=== PATIENT | female | born 1955 | race Caucasian/White ===

== ENCOUNTER 2016-08-06 07:46 | Emergency (ER) | payer MEDICAID ==
[~2016-08-06] VITALS: Ht 177.8 cm; Wt 110.0 kg
[2016-08-06] MEDS ORDERED: SYNTHROID (07:58)
[2016-08-06] MEDS ORDERED: FAMOTIDINE 20MG TABLET PO ONE (10:45)
[2016-08-06] MEDS ORDERED: KETOROLAC 60MG/2ML VIAL IM ONE (11:15)
[2016-08-06] MEDS ORDERED: IBUPROFEN 600MG TABLET PO ONE (11:45)
[2016-08-06 12:00] VITALS: BP 124/71
[2016-08-07] MEDS ORDERED: LORATADINE 10MG TABLET PO SCH (09:00)
== END 2016-08-06 12:43 | disposition home or self-care (01) ==
LOC: ER 10:23
DX: L23.81 Allergic contact dermatitis due to animal (cat) (dog) dander (principal); R03.0 Elevated blood-pressure reading, without diagnosis of hypertension
CPT/HCPCS: 99284

== ENCOUNTER 2018-11-12 16:24 | Emergency (ER) | payer MEDICAID ==
[~2018-11-12] VITALS: Ht 170.2 cm; Wt 114.0 kg
[~2018-11-12 16:24] MED LIST: SYNTHROID
[2018-11-12] MEDS ORDERED: KETOROLAC 30MG/ML VIAL IV STA (17:29)
[2018-11-12] MEDS ORDERED: SODIUM CHLORIDE 0.9% 1,000 ML IV ONE (17:29)
[2018-11-12] MEDS ORDERED: ONDANSETRON HCL 4MG/2ML INJ IV STA (17:29)
[2018-11-12 18:33] LABS: BASOPHILS % 0.6 % (0.0-2.0); EOSINOPHILS % 2.4 % (0.0-5.0); HEMATOCRIT. 34.4 % (36.0-48.0); HEMOGLOBIN. 11.7 g/dL (12.0-16.0); LYMPHOCYTES % 47.1 % (20.0-50.0); MEAN CORPUSCULAR HEMOGLOBIN 33.3 pg (28.0-32.0); MEAN CORPUSCULAR VOLUME 98.2 fL (81.0-99.0); MEAN PLATELET VOLUME 7.8 fl (7.4-10.4); MONOCYTES % 10.4 % (2.0-8.0); NEUTROPHILS % 39.5 % (40.0-76.0); PLATELET 199 x1000/uL (130-400); RED BLOOD CELL COUNT 3.51 mill/uL (4.2-5.4); RED CELL DISTRIBUTION WIDTH 13.3 % (11.6-14.6)
[2018-11-12 18:35] LABS: CHLORIDE 112 mEq/L (98-107)
[2018-11-12 18:48] VITALS: BP 131/78
== END 2018-11-12 19:20 | disposition home or self-care (01) ==
LOC: ER 16:24
DX: R10.13 Epigastric pain (principal); R11.0 Nausea; K59.00 Constipation, unspecified; E03.9 Hypothyroidism, unspecified; Z98.890 Other specified postprocedural states
CPT/HCPCS: 36415; 74021; 80053; 83690; 85025; 99284; J7030

== ENCOUNTER 2019-03-28 21:27 | Emergency (ER) | payer MEDICAID ==
[~2019-03-28] VITALS: Ht 177.8 cm; Wt 113.3 kg
[2019-03-28 21:39] VITALS: BP 142/80
[2019-03-29] MEDS ORDERED: IBUPROFEN 600MG TABLET PO ONE (00:30)
== END 2019-03-29 01:26 | disposition left against medical advice (07) ==
LOC: ER 21:27
DX: M72.2 Plantar fascial fibromatosis (principal); R03.0 Elevated blood-pressure reading, without diagnosis of hypertension; E03.9 Hypothyroidism, unspecified
CPT/HCPCS: 99281

== ENCOUNTER 2019-06-16 15:31 | Emergency (ER) | payer MEDICAID, OTHER ==
[~2019-06-16] VITALS: Ht 177.8 cm; Wt 115.0 kg
[2019-06-16] MEDS ORDERED: KETOROLAC 30MG/ML VIAL IM ONE (16:00)
[2019-06-16] MEDS ORDERED: IBUPROFEN 600MG TABLET PO ONE (17:00)
[2019-06-16 17:09] VITALS: BP 158/87
== END 2019-06-16 17:10 | disposition home or self-care (01) ==
LOC: ER 15:31
DX: M54.5 Low back pain (principal); R03.0 Elevated blood-pressure reading, without diagnosis of hypertension; V43.52XA Car driver injured in collision with other type car in traffic accident, initial encounter; Y93.89 Activity, other specified; Y92.488 Other paved roadways as the place of occurrence of the external cause
CPT/HCPCS: 72100; 99283; J1885

== ENCOUNTER 2019-06-27 17:34 | Emergency (ER) | payer OTHER ==
[~2019-06-27] VITALS: Ht 177.8 cm; Wt 113.0 kg
[2019-06-27 17:44] VITALS: BP 147/102
[2019-06-27] MEDS ORDERED: SODIUM CHLORIDE 0.9% 1,000 ML IV ONE (20:17)
[2019-06-27] MEDS ORDERED: ONDANSETRON HCL 4MG/2ML INJ IV STA (20:17)
[2019-06-27 21:03] LABS: BASOPHILS % 0.5 % (0.0-2.0); EOSINOPHILS % 7.5 % (0.0-5.0); HEMATOCRIT. 38.6 % (36.0-48.0); HEMOGLOBIN. 12.9 g/dL (12.0-16.0); LYMPHOCYTES % 43.3 % (20.0-50.0); MEAN CORPUSCULAR HEMOGLOBIN 33.1 pg (28.0-32.0); MEAN CORPUSCULAR VOLUME 99.1 fL (81.0-99.0); MEAN PLATELET VOLUME 8.9 fl (7.4-10.4); MONOCYTES % 7.2 % (2.0-8.0); NEUTROPHILS % 41.5 % (40.0-76.0); PLATELET 202 x1000/uL (130-400); RED CELL DISTRIBUTION WIDTH 13.4 % (11.6-14.6)
[2019-06-27 21:04] LABS: CLARITY URINE CLEAR (CLEAR); COLOR URINE YELLOW (YELLOW); KETONES URINE TRACE (NEGATIVE); LEUKOCYTE ESTERASE URINE 2+ (NEGATIVE); NITRITE URINE NEGATIVE (NEGATIVE); OCCULT BLOOD URINE NEGATIVE (NEGATIVE); PH URINE 7.5 (4.5-8.0); PROTEIN URINE NEGATIVE (NEGATIVE); SPECIFIC GRAVITY URINE 1.033 (1.005-1.030)
[2019-06-27 21:07] LABS: CHLORIDE 107 mEq/L (98-107)
[2019-06-28] MEDS ORDERED: IOHEXOL-300 100 ML BOTTLE ONE (00:13)
== END 2019-06-27 23:30 | disposition home or self-care (01) ==
LOC: ER 17:34
DX: N39.0 Urinary tract infection, site not specified (principal); E03.9 Hypothyroidism, unspecified; Z96.659 Presence of unspecified artificial knee joint
CPT/HCPCS: 36415; 74177; 80053; 81003; 83690; 85025; 93005; 96374; 99285; J2405; Q9967

== ENCOUNTER 2019-07-03 20:35 | Emergency (ER) | payer OTHER ==
[~2019-07-03] VITALS: Ht 177.8 cm; Wt 113.0 kg
[2019-07-03] MEDS ORDERED: DICYCLOMINE 10 MG/5 ML ORAL SYR PO STA (22:38)
[2019-07-03] MEDS ORDERED: MAGNESIUM/ALUMINUM HYDROXIDE/SIMETHICONE 30ML UDC PO STA (22:38)
[2019-07-03] MEDS ORDERED: VISCOUS LIDOCAINE 2% 15 ML UDC PO STA (22:38)
[2019-07-03] MEDS ORDERED: IBUPROFEN 600MG TABLET PO ONE (22:45)
[2019-07-03 23:34] LABS: BASOPHILS % 0.4 % (0.0-2.0); EOSINOPHILS % 12.7 % (0.0-5.0); HEMATOCRIT. 37.2 % (36.0-48.0); HEMOGLOBIN. 12.6 g/dL (12.0-16.0); LYMPHOCYTES % 27.3 % (20.0-50.0); MEAN CORPUSCULAR HEMOGLOBIN 33.3 pg (28.0-32.0); MEAN CORPUSCULAR VOLUME 98.2 fL (81.0-99.0); MEAN PLATELET VOLUME 8.2 fl (7.4-10.4); MONOCYTES % 8.4 % (2.0-8.0); NEUTROPHILS % 51.2 % (40.0-76.0); PLATELET 214 x1000/uL (130-400); RED BLOOD CELL COUNT 3.78 mill/uL (4.2-5.4); RED CELL DISTRIBUTION WIDTH 13.1 % (11.6-14.6)
[2019-07-03 23:39] LABS: CHLORIDE 104 mEq/L (98-107)
[2019-07-04 00:06] LABS: CLARITY URINE CLEAR (CLEAR); COLOR URINE YELLOW (YELLOW); KETONES URINE NEGATIVE (NEGATIVE); LEUKOCYTE ESTERASE URINE 2+ (NEGATIVE); NITRITE URINE NEGATIVE (NEGATIVE); OCCULT BLOOD URINE NEGATIVE (NEGATIVE); PROTEIN URINE NEGATIVE (NEGATIVE); UROBILINOGEN URINE 0.2 E.U./dL (0.2-1.0)
[2019-07-04 00:15] VITALS: BP 127/83
== END 2019-07-04 00:21 | disposition home or self-care (01) ==
LOC: ER 20:35
DX: N30.90 Cystitis, unspecified without hematuria (principal); Z98.890 Other specified postprocedural states; Z96.659 Presence of unspecified artificial knee joint; Z87.440 Personal history of urinary (tract) infections; E03.9 Hypothyroidism, unspecified
CPT/HCPCS: 36415; 80053; 81003; 85025; 99284

== ENCOUNTER 2019-10-29 21:37 | Emergency (ER) | payer OTHER ==
[~2019-10-29] VITALS: Ht 177.8 cm; Wt 118.0 kg
[2019-10-29 23:38] LABS: CHLORIDE 108 mEq/L (98-107)
[2019-10-29 23:40] LABS: BASOPHILS % 0.5 % (0.0-2.0); EOSINOPHILS % 1.9 % (0.0-5.0); HEMATOCRIT. 35.5 % (36.0-48.0); LYMPHOCYTES % 45.7 % (20.0-50.0); MEAN CORPUSCULAR HEMOGLOBIN 32.5 pg (28.0-32.0); MEAN CORPUSCULAR VOLUME 96.6 fL (81.0-99.0); MEAN PLATELET VOLUME 9.2 fl (7.4-10.4); MONOCYTES % 14.7 % (2.0-8.0); NEUTROPHILS % 37.2 % (40.0-76.0); PLATELET 144 x1000/uL (130-400); RED BLOOD CELL COUNT 3.67 mill/uL (4.2-5.4); RED CELL DISTRIBUTION WIDTH 12.9 % (11.6-14.6)
[2019-10-29 23:46] LABS: ETHANOL BLOOD < 10 mg/dL
[2019-10-30] MEDS ORDERED: ONDANSETRON HCL 4MG/2ML INJ IV STA (00:04)
[2019-10-30] MEDS ORDERED: NITROGLYCERIN OINT 1GM/INCH UDPKT TD ONE (00:15)
[2019-10-30] MEDS ORDERED: HYDROCODONE/ACETAMINOPHEN 5/325MG TABLET PO ONE (00:15)
[2019-10-30] MEDS ORDERED: ASPIRIN 81MG TABLET PO ONE (00:15)
[2019-10-30 01:30] VITALS: BP 131/72
== END 2019-10-30 02:26 | disposition short-term general hospital (02) ==
LOC: ER 21:37
DX: R07.89 Other chest pain (principal); R42 Dizziness and giddiness; M25.562 Pain in left knee; E03.9 Hypothyroidism, unspecified
CPT/HCPCS: 36415; 71045; 80053; 80320; 83690; 83880; 84484; 85025; 93005; 93970; 99285; Z7610; J2405; G0480

== ENCOUNTER 2023-02-07 14:21 | Emergency (ER) | payer OTHER ==
[~2023-02-07] VITALS: Ht 177.8 cm; Wt 120.0 kg
[2023-02-07 14:39] VITALS: BP 165/72; PULSE 74; RESP 16; TEMP 98.8; O2SAT 100
[2023-02-07] MEDS ORDERED: MAGNESIUM/ALUMINUM HYDROXIDE/SIMETHICONE 30ML UDC PO STA (15:01)
[2023-02-07] MEDS ORDERED: FAMOTIDINE 20MG TABLET PO ONE (15:15)
[2023-02-07 15:35] LABS: BASOPHILS % 0.7 % (0.0-2.0); EOSINOPHILS % 1.8 % (0.0-5.0); HEMATOCRIT. 35.6 % (36.0-48.0); HEMOGLOBIN. 11.8 g/dL (12.0-16.0); LYMPHOCYTES % 38.1 % (20.0-50.0); MEAN CORPUSCULAR HEMOGLOBIN 32.8 pg (28.0-32.0); MEAN CORPUSCULAR HGB CONC 33.1 g/dL (31.0-37.0); MEAN CORPUSCULAR VOLUME 99.1 fL (81.0-99.0); MONOCYTES % 10.2 % (2.0-8.0); NEUTROPHILS % 49.2 % (40.0-76.0); PLATELET 195 x1000/uL (130-400); RED BLOOD CELL COUNT 3.59 mill/uL (4.2-5.4); RED CELL DISTRIBUTION WIDTH 12.9 % (11.6-14.6); WHITE BLOOD COUNT 2.6 x1000/uL (4.5-11.0)
[2023-02-07 15:42] LABS: ALANINE AMINOTRANSFERASE 26 IU/L (10-49); ASPARTATE AMINOTRANSFERASE 25 IU/L (<34); BILIRUBIN TOTAL 0.5 mg/dL (0.1-1.0); CALCIUM 9.2 mg/dL (8.7-10.4); CARBON DIOXIDE 28 mEq/L (21-32); CHLORIDE 109 mEq/L (98-107); CREATININE 0.7 mg/dL (0.6-1.0); GLUCOSE 74 mg/dL (70-105); POTASSIUM 4.1 mEq/L (3.5-5.1); PROTEIN TOTAL 6.8 g/dL (6.0-8.3); SODIUM 143 mEq/L (136-145); TROPONIN I HIGH SENSITIVITY 4 ng/L (3.0-34); UREA NITROGEN BLOOD 17 mg/dL (9-23)
[2023-02-07] MEDS ORDERED: FAMO40TA70 MT (16:15)
[2023-02-07] MEDS ORDERED: MAG-55 MT (16:15)
[2023-02-07] MEDS ORDERED: MAGNESIUM/ALUMINUM HYDROXIDE/SIMETHICONE 30ML UDC PO NR (16:30)
[2023-02-07] MEDS ORDERED: FAMOTIDINE 20MG TABLET PO NR (16:30)
== END 2023-02-07 16:32 | disposition home or self-care (01) ==
LOC: ER 14:21
DX: K29.70 Gastritis, unspecified, without bleeding (principal); E03.9 Hypothyroidism, unspecified; Z96.653 Presence of artificial knee joint, bilateral; Z98.890 Other specified postprocedural states
CPT/HCPCS: 36415; 71045; 80053; 84484; 85025; 85379; 99284

== ENCOUNTER 2024-07-20 19:26 | Emergency (ER) | payer MEDICARE, OTHER ==
[~2024-07-20] VITALS: Ht 177.8 cm; Wt 119.4 kg
[~2024-07-20 19:26] MED LIST changes: +FAMO40TA70 MT; +MAG-55 MT
[2024-07-20 19:28] VITALS: BP 141/81; RESP 16; TEMP 37.1; O2SAT 99
[2024-07-20 19:34] VITALS: PULSE 99; O2SAT 98
[2024-07-20] MEDS ORDERED: NAPR-1176 MT (20:39)
[2024-07-20] MEDS ORDERED: AMOX1TAB16 MT (20:39)
== END 2024-07-20 20:50 | disposition home or self-care (01) ==
LOC: ER 19:26
DX: L03.012 Cellulitis of left finger (principal); E03.9 Hypothyroidism, unspecified; Z79.899 Other long term (current) drug therapy; Z79.1 Long term (current) use of non-steroidal anti-inflammatories (NSAID); Z96.659 Presence of unspecified artificial knee joint
CPT/HCPCS: 99283